=== PATIENT | female | born 2000 | race Caucasian/White ===

== ENCOUNTER 2022-01-20 04:47 | Emergency (ER) | payer MEDICAID ==
[~2022-01-20] VITALS: Ht 157.5 cm; Wt 79.5 kg
[2022-01-20] MEDS ORDERED: ondansetron 4mg rapidly disintigrating tab PO ONE (06:45)
[2022-01-20] MEDS ORDERED: normal saline 1000ml 1,000 ML IV ONE (06:45)
[2022-01-20 07:07] VITALS: BP 114/82
[2022-01-20] MEDS ORDERED: ondansetron/PF 4mg/2ml inj IV ONE (07:35)
[2022-01-20] MEDS ORDERED: ringers solution, lacted 1,000 ML IV ONE (07:35)
--- NOTE | 2022-01-20 07:50 | NUR ---
PT AMBULATED WITH STEADY GAIT TO NURSES STATION, STATES SHE DOES NOT WANT THE IV FLUIDS AND FEELS BETTER. WILL INFORM .
[2022-01-20] MEDS ORDERED: ONDA4TAB12 PO (08:04)
[2022-01-20 08:07] LABS: CLARITY,URINE SLIGHTLY CLOUDY (Clear); COLOR,URINE YELLOW (Yellow); GLUCOSE, URINE NEGATIVE (Neg); KETONES,URINE 15 mg/dl (Neg); LEUKOCYTE ESTERASE ,URINE NEGATIVE (Neg); NITRITES, URINE NEGATIVE (Neg); OCCULT BLOOD,URINE TRACE-INTACT (Neg); PH,URINE 6.5 (4.8-8.0); PROTEIN,URINE NEGATIVE (Neg); UROBILINOGEN,URINE 0.2 E.U/dL (0.2-1.0)
[2022-01-20 08:08] LABS: URINE HCG NEGATIVE (NEG)
[2022-01-20 08:17] LABS: UA COLLECTION TYPE CLN CATCH MIDSTREAM
[2022-01-20 08:20] LABS: AMORPHOUS URATES 1+; BACTERIA,URINE FEW /HPF (Neg); RBC,URINE 0-2 /HPF (0-2); SQUAMOUS EPITHELIAL CELL,UR FEW /LPF (FEW); WBC,URINE 0-4 /HPF (0-4)
== END 2022-01-20 08:25 | disposition home or self-care (01) ==
LOC: ER 04:47
DX: R11.2 Nausea with vomiting, unspecified (principal); Z88.0 Allergy status to penicillin
CPT/HCPCS: 81001; 81025; 99283; J7030

== ENCOUNTER 2022-01-26 07:46 | Emergency (ER) | payer MEDICAID ==
[~2022-01-26 07:46] MED LIST: ONDA4TAB12 PO
== END 2022-01-26 08:54 | disposition left against medical advice (07) ==
LOC: ER 07:46
DX: H92.09 Otalgia, unspecified ear (principal); Z53.21 Procedure and treatment not carried out due to patient leaving prior to being seen by health care provider